=== PATIENT | female | born 1940 | race Caucasian/White ===

== ENCOUNTER → 2017-11-20 | Emergency (ER) | payer OTHER ==
[~2017-11-20] VITALS: Ht 152.4 cm; Wt 56.7 kg
[~2017-11-20] MED LIST: ARICEPT10 MG; ASPIR 8181 MG; ATARAX10 MG; CRANBERRY TABL1 EACH; FUROSEMIDE20 MG; GABAPENTIN300 MG; HUMULIN 70100 UNIT/2; LOTREL 10-20 M1 EACH; MECLIZINE HCL25 MG; MELATONIN10 MG; OMEGA 3-6-9 11200 M1; VITAMIN C WIT1000 M1; XYZAL5 MG
== END | disposition home or self-care (01) ==
LOC: ER 14:14
DX: K52.89 Other specified noninfective gastroenteritis and colitis (principal)